=== PATIENT | female | born 2000 | race Caucasian/White ===

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

== ENCOUNTER 2020-05-08 13:28 | Emergency (ER) | payer BC, MEDICAID ==
[2020-05-08 13:37] VITALS: BP 123/64
--- NOTE | 2020-05-08 14:01 | ER Document Report ---
ED Medical Screen (RME) - General Chief Complaint: Back Pain Stated Complaint: BACK, NECK,SHOULDER PAIN Time Seen by Provider: 05/08/20 13:53 Mode of Arrival: Ambulatory Information source: Patient Notes: 19-year-old female presented to ED for right arm feels very heavy with sharp pain to the lower arm and scapula. She states she has had this on and off for about a year but the last couple days it has been much worse. She states that her lower back always has cellulitis but that is also much more painful than normal. She states she has a Dr. Persaud for her primary doctor but she is 29 weeks so I cannot give her x-rays or ibuprofen or steroids at this time. I will get blood work and urine and have her seen by another provider. I have greeted and performed a rapid initial assessment of this patient. A comprehensive ED assessment and evaluation of the patient, analysis of test results and completion of medical decision making process will be conducted by an additional ED providers. TRAVEL OUTSIDE OF THE [place] IN LAST 30 DAYS: No - Related Data Allergies/Adverse Reactions: No Known Allergies Allergy (Verified 08/04/17 18:43) Physical Exam - Vital signs Vitals: Temp Pulse Resp BP Pulse Ox 99.1 F 114 H 20 123/64 100 05/08/20 13:36 05/08/20 13:36 05/08/20 13:36 05/08/20 13:36 05/08/20 13:36 Course - Vital Signs Vital signs: Temp Pulse Resp BP Pulse Ox 99.1 F 114 H 20 123/64 100 05/08/20 13:36 05/08/20 13:36 05/08/20 13:36 05/08/20 13:36 05/08/20 13:36
[2020-05-08 14:22] LABS: ABSOLUTE BASOPHILS # (AUTO) 0.1 10^3/uL (0.0-0.2); ABSOLUTE EOSINOPHILS # (AUTO) 0.1 10^3/uL (0.0-0.6); ABSOLUTE LYMPHOCYTES (AUTO) 3.6 10^3/uL (0.5-4.7); ABSOLUTE MONOCYTES (AUTO) 1.7 10^3/uL (0.1-1.4); ABSOLUTE NEUT (AUTO) 13.9 10^3/uL (1.7-8.2); BASOPHILS % (AUTO) 0.5 % (0-2); EOSINOPHILS % (AUTO) 0.7 % (0-6); HEMATOCRIT 34.1 % (36.0-47.0); HEMOGLOBIN 11.7 g/dL (12.0-15.5); LYMPHOCYTES % (AUTO) 18.4 % (13-45); MEAN CORPUSCULAR HEMOGLOBIN 29.4 pg (27.0-33.4); MEAN CORPUSCULAR HGB CONC 34.3 g/dL (32.0-36.0); MEAN CORPUSCULAR VOLUME 86 fl (80-97); MONOCYTES % (AUTO) 8.6 % (3-13); PLATELET COUNT 340 10^3/uL (150-450); RED BLOOD COUNT 3.99 10^6/uL (3.72-5.28); RED CELL DISTRIBUTION WIDTH 14.8 % (11.5-14.0); SEGMENTED NEUTROPHILS % (AUTO) 71.8 % (42-78); TOTAL CELLS COUNTED % (AUTO) 100 %; WHITE BLOOD COUNT 19.4 10^3/uL (4.0-10.5)
[2020-05-08 14:32] LABS: APPEARANCE,URINE CLOUDY; BILIRUBIN,URINE NEGATIVE (NEGATIVE); COLOR,URINE YELLOW; GLUCOSE, URINE NEGATIVE (NEGATIVE); KETONES,URINE NEGATIVE (NEGATIVE); LEUKOCYTE ESTERASE,URINE TRACE (NEGATIVE); NITRITE,URINE NEGATIVE (NEGATIVE); PROTEIN,URINE 30 mg/dL (NEGATIVE); URINE SPECIFIC GRAVITY 1.014
[2020-05-08 14:38] LABS: ALBUMIN 3.5 g/dL (3.5-5.0); ALKALINE PHOSPHATASE 153 U/L (38-126); ANION GAP 6 (5-19); ASPARTATE AMINO TRANSFERASE 18 U/L (14-36); BILIRUBIN,TOTAL 0.3 mg/dL (0.2-1.3); BLOOD UREA NITROGEN 6 mg/dL (7-20); CALCIUM 9.4 mg/dL (8.4-10.2); CARBON DIOXIDE 20 mmol/L (22-30); CHLORIDE 109 mmol/L (98-107); GLUCOSE 92 mg/dL (75-110); POTASSIUM 4.3 mmol/L (3.6-5.0); TOTAL PROTEIN 6.7 g/dL (6.3-8.2)
== END 2020-05-09 06:35 | disposition left against medical advice (07) ==
LOC: ER 13:28
DX: Z53.20 Procedure and treatment not carried out because of patient's decision for unspecified reasons (principal); M54.9 Dorsalgia, unspecified; M54.2 Cervicalgia; M79.601 Pain in right arm; M25.511 Pain in right shoulder; M54.5 Low back pain; Z3A.29 29 weeks gestation of pregnancy
CPT/HCPCS: 36415; 80053; 81001; 83690; 85025; 99281

== ENCOUNTER 2020-05-18 16:51 | Emergency (ER) | payer MEDICAID ==
[2020-05-18 16:57] VITALS: BP 128/65
--- NOTE | 2020-05-18 17:06 | ER Document Report ---
ED Medical Screen (RME) - General Chief Complaint: Fall Injury Stated Complaint: FALL/BACK PAIN Time Seen by Provider: 05/18/20 16:55 Mode of Arrival: Ambulatory Information source: Patient Notes: 19-year-old female presented to ED for complaint of back and coccyx area pain after she fell yesterday. She states yesterday the pain was not bad but today is much worse. She denies abdominal pain. She is 31 weeks . She states she smokes 1/2 pack a day does not drink or do any drugs. She lives with her significant other and child. She states she took Tylenol about 1 PM. States she can feel her child moved. I have ordered urine and a heart and she will be evaluated by another provider. I have greeted and performed a rapid initial assessment of this patient. A comprehensive ED assessment and evaluation of the patient, analysis of test results and completion of medical decision making process will be conducted by an additional ED providers. TRAVEL OUTSIDE OF THE [place] IN LAST 30 DAYS: No - Related Data Allergies/Adverse Reactions: No Known Allergies Allergy (Verified 05/18/20 16:56) Home Medications: PNV Past Medical History - Social History Chew tobacco use (# tins/day): No Frequency of alcohol use: None Drug Abuse: None Psychiatric Medical History: Reports: Hx Bipolar Disorder, Hx Depression Past Surgical History: Reports: Hx Oral Surgery Physical Exam - Vital signs Vitals: Pulse Resp BP Pulse Ox 114 H 18 128/65 H 100 05/18/20 16:55 05/18/20 16:55 05/18/20 16:55 05/18/20 16:55 Course - Vital Signs Vital signs: Temp Pulse Resp BP Pulse Ox 114 H 18 128/65 H 100 05/18/20 16:55 05/18/20 16:55 05/18/20 16:55 05/18/20 16:55
[2020-05-18 17:31] LABS: APPEARANCE,URINE SLIGHTLY-CLOUDY; BILIRUBIN,URINE NEGATIVE (NEGATIVE); COLOR,URINE YELLOW; GLUCOSE, URINE NEGATIVE (NEGATIVE); KETONES,URINE NEGATIVE (NEGATIVE); LEUKOCYTE ESTERASE,URINE NEGATIVE (NEGATIVE); NITRITE,URINE NEGATIVE (NEGATIVE); PROTEIN,URINE NEGATIVE (NEGATIVE); URINE SPECIFIC GRAVITY 1.023
--- NOTE | 2020-05-18 18:05 | ER Document Report ---
Entered by ITZEL ESCOBAR SCRIBE 05/18/20 1744 Acting as scribe for:MATEO VASQUEZ MD ED General - General Chief Complaint: Fall Injury Stated Complaint: FALL/BACK PAIN Time Seen by Provider: 05/18/20 16:55 Information source: Patient Notes: This 19 year old female patient that is 31 weeks presents to the emergency department today with complaints of lower back pain associated with a fall yesterday. Patient states that she was walking on a splash pad with her child and she didn't realize her shoes were smooth on the bottom. Patient slipped and landed on her buttocks. TRAVEL OUTSIDE OF THE [place] IN LAST 30 DAYS: No - Related Data Allergies/Adverse Reactions: No Known Allergies Allergy (Verified 05/18/20 16:56) Home Medications: PNV Past Medical History - General Information source: Patient - Social History Smoking Status: Current Every Day Smoker Cigarette use (# per day): No Chew tobacco use (# tins/day): No Frequency of alcohol use: None Drug Abuse: None Lives with: Family Family History: Reviewed & Not Pertinent Patient has homicidal ideation: No Psychiatric Medical History: Reports: Hx Bipolar Disorder, Hx Depression Past Surgical History: Reports: Hx Oral Surgery Review of Systems - Review of Systems Constitutional: No symptoms reported EENT: No symptoms reported Cardiovascular: No symptoms reported Respiratory: No symptoms reported Gastrointestinal: No symptoms reported Genitourinary: No symptoms reported Female Genitourinary: See HPI, Musculoskeletal: See HPI, Back pain Skin: No symptoms reported Hematologic/Lymphatic: No symptoms reported Neurological/Psychological: No symptoms reported -: Yes All other systems reviewed and negative Physical Exam - Vital signs Vitals: Pulse Resp BP Pulse Ox 114 H 18 128/65 H 100 05/18/20 16:55 05/18/20 16:55 05/18/20 16:55 05/18/20 16:55 - Notes Notes: Physical Exam: General: Alert, appears well. HEENT: Normocephalic. Atraumatic. PERRL. Extraocular movements intact. Oropharynx clear. Neck: Supple. Non-tender. Respiratory: No respiratory distress. Clear and equal breath sounds bilaterally. Cardiovascular: Regular rate and rhythm. Abdominal: Gravid female. Non-tender. No distension. Normal Bowel Sounds. Back: Tenderness with palpation over the ischial tuberosity. No gross abnorm alities. Extremities: Moves all four extremities. Upper extremities: Normal inspection. Normal ROM. Lower extremities: Normal inspection. No edema. Normal ROM. Neurological: Normal cognition. AAOx4. Normal speech. Psychological: Normal affect. Normal Mood. Skin: Warm. Dry. Normal color. Course - Re-evaluation Re-evalutation: 05/18/20 18:05 Urinalysis shows urine is little concentrated suggesting the patient needs to drink more water. heart tones 150. - Vital Signs Vital signs: Temp Pulse Resp BP Pulse Ox 114 H 18 128/65 H 100 05/18/20 16:55 05/18/20 16:55 05/18/20 16:55 05/18/20 16:55 - Laboratory Laboratory results interpreted by me: 05/18/20 17:07 Urine Urobilinogen 2.0 H Discharge - Discharge Clinical Impression: with 31 completed weeks gestation Contusion of buttock Qualifiers: Encounter type: initial encounter Qualified Code(s): S30.0XXA - Contusion of lower back and pelvis, initial encounter Condition: Stable Disposition: HOME, SELF-CARE Additional Instructions: Contusion Your injury has resulted in a contusion -- a crushing of the deep tissues. No injury to important structures was detected during the physician's exam. Contusions vary in the amount of pain they cause, and in the length of time required for healing. Typically, the area will become bruised, and will remain painful to touch for two or three weeks. However, most patients are back to working and playing within a few days. After the initial period of rest and cold-packs, your symptoms (together with the doctor's recommendations) will determine how rapidly you can get back to full activity. Usually this means "do what feels okay, but don't do things that hurt." If re-examination was recommended, it's important to follow up as instructed. Call the doctor or return any time if pain increases, if swelling becomes severe, if you develop numbness or weakness in an injured extremity, or if any other alarming symptoms occur. When you fell you landed on the bony projection of your pelvis called the ischial tuberosity. This would cause the crush or contusion type injury to the soft tissues between the bony area and the skin. You will notice discomfort in that area when you walk because your nubia and relaxing muscles and stretching soft tissues in that area. You should limit activities that make it hurt worse for the next few days. Use ice packs on the area for 1 to 2 days. Take Tylenol for pain as needed. You should also drink a lot more fluids than you have been based on your urine concentration today. Follow-up with your [employer] doctors if you do not improve. RETURN TO THE EMERGENCY ROOM IF ANY NEW OR WORSENING SYMPTOMS. Referrals: [facility] [Provider Group] - Follow up as needed I personally performed the services described in the documentation, reviewed and edited the documentation which was dictated to the scribe in my presence, and it accurately records my words and actions.
== END 2020-05-18 18:41 | disposition home or self-care (01) ==
LOC: ER 16:51
DX: O9A.213 Injury, poisoning and certain other consequences of external causes complicating pregnancy, third trimester (principal); S30.0XXA Contusion of lower back and pelvis, initial encounter; W01.0XXA Fall on same level from slipping, tripping and stumbling without subsequent striking against object, initial encounter; Y93.89 Activity, other specified; O99.333 Smoking (tobacco) complicating pregnancy, third trimester; F17.200 Nicotine dependence, unspecified, uncomplicated; Z79.899 Other long term (current) drug therapy; Z3A.31 31 weeks gestation of pregnancy
CPT/HCPCS: 81001; 99283

== ENCOUNTER → 2020-05-28 | Outpatient (CLI) | payer MEDICAID ==
--- NOTE | 2020-05-28 15:30 | RADIOLOGY REPORT (SQ) ---
EXAM DESCRIPTION: U/S ABDOMEN LIMITED W/O DOP IMAGES COMPLETED DATE/TIME: 05/28/2020 2:56 pm REASON FOR STUDY: R10.13 EPIGASTRIC PAIN R10.13 EPIGASTRIC PAIN COMPARISON: None. TECHNIQUE: Dynamic and static grayscale images acquired of the abdomen and recorded on PACS. Additio nal selected color Doppler and spectral images recorded. LIMITATIONS: None. FINDINGS: PANCREAS: Obscured by overlying bowel gas. LIVER: No masses. Echotexture normal. LIVER VASCULATURE: Normal directional flow of the main portal vein and hepatic veins. GALLBLADDER: Gallbladder is contracted. No stones are identified. ULTRASOUND-DETECTED WHITFIELD'S SIGN: Negative. INTRAHEPATIC DUCTS AND COMMON DUCT: CBD and intrahepatic ducts normal caliber. No filling defects. AORTA: No aneurysm. RIGHT KIDNEY: Normal size. Normal echogenicity. No solid or suspicious masses. No hydronephrosis. No calcifications. PERITONEAL AND RIGHT PLEURAL SPACE: No ascites or effusions. OTHER: No other significant findings. IMPRESSION: NORMAL RIGHT UPPER QUADRANT ULTRASOUND. TECHNICAL DOCUMENTATION: JOB ID: [id number] 2010 [employer]- All Rights Reserved Reading location - IP/workstation name: [email or web address]
== END ==
LOC: RAD 14:07
PROVIDERS: ATTEND Advanced Practice Midwife
DX: R10.13 Epigastric pain (principal)
CPT/HCPCS: 76705

== ENCOUNTER 2020-06-24 07:31 | Outpatient (CLI) | payer MEDICAID ==
--- NOTE | 2020-06-24 08:53 | Non Stress Test Report ---
Non Stress Test Datetime Report Generated by CPN: 06/24/2020 08:53 DEMOGRAPHIC Test Number: 2 EGA NST: 36.4 INDICATION Indication for Study (NST) Other: LC- ctxs MONITORING Monitor Explained: Monitor Explained; Test Explained; Patient Verbalized Understanding Time on Monitor: 06/24/2020 07:54 Time off Monitor: 06/24/2020 08:49 NST Duration: 55 NST INTERVENTIONS NST Interventions: PO Hydration Physician Notified NST: Dr Thomas BABY A: [id number] BABY A Movement : Present Contraction Frequency : irregular FHR Baseline : 135 Accelerations : 15X15 Decelerations : None Variability : Moderate 6-25bpm NST Review: Meets Criteria for Reactive NST NST Review and Verified By : TMartin,RN NST Results: Reactive NST COMMENTS NST Comments: MD on unit reviewing FHT strip NST REPORT Report Trigger: Send Report
[2020-06-24 08:56] LABS: APPEARANCE,URINE CLOUDY; BILIRUBIN,URINE NEGATIVE (NEGATIVE); COLOR,URINE AMBER; GLUCOSE, URINE NEGATIVE (NEGATIVE); KETONES,URINE NEGATIVE (NEGATIVE); LEUKOCYTE ESTERASE,URINE TRACE (NEGATIVE); NITRITE,URINE NEGATIVE (NEGATIVE); PROTEIN,URINE 100 mg/dL (NEGATIVE); URINE SPECIFIC GRAVITY 1.029
[2020-06-24 09:19] LABS: URINE BENZODIAZEPINES SCREEN NEGATIVE; URINE COCAINE SCREEN NEGATIVE; URINE MARIJUANA (THC) SCREEN NEGATIVE; URINE METHADONE SCREEN NEGATIVE; URINE PHENCYCLIDINE SCREEN NEGATIVE
[2020-06-24 09:23] LABS: URINE AMPHETAMINES SCREEN UNCONFIRMED POSITIVE; URINE BARBITURATES SCREEN UNCONFIRMED POSITIVE
== END 2020-06-24 09:09 | disposition home or self-care (01) ==
LOC: LC 07:31
PROVIDERS: ATTEND Obstetrics & Gynecology
DX: O23.43 Unspecified infection of urinary tract in pregnancy, third trimester (principal); O47.03 False labor before 37 completed weeks of gestation, third trimester; Z3A.36 36 weeks gestation of pregnancy
CPT/HCPCS: 59025; 80307; 81001; 87086

== ENCOUNTER 2020-07-04 19:30 | Inpatient (IN) | payer MEDICAID ==
[2020-07-04 21:20] LABS: APPEARANCE,URINE SLIGHTLY-CLOUDY; BILIRUBIN,URINE NEGATIVE (NEGATIVE); COLOR,URINE YELLOW; GLUCOSE, URINE NEGATIVE (NEGATIVE); KETONES,URINE NEGATIVE (NEGATIVE); LEUKOCYTE ESTERASE,URINE NEGATIVE (NEGATIVE); NITRITE,URINE NEGATIVE (NEGATIVE); PROTEIN,URINE 30 mg/dL (NEGATIVE); URINE SPECIFIC GRAVITY 1.025; UROBILINOGEN,URINE NEGATIVE mg/dL (<2.0)
[2020-07-04 21:36] LABS: URINE AMPHETAMINES SCREEN NEGATIVE; URINE BENZODIAZEPINES SCREEN NEGATIVE; URINE COCAINE SCREEN NEGATIVE; URINE MARIJUANA (THC) SCREEN NEGATIVE; URINE METHADONE SCREEN NEGATIVE; URINE PHENCYCLIDINE SCREEN NEGATIVE
[2020-07-04 21:37] LABS: URINE BARBITURATES SCREEN UNCONFIRMED POSITIVE
[2020-07-04] MEDS ORDERED: RINGERS SOLUTION,LACTATED 1,000 ML IV PRN (22:04)
[2020-07-04] MEDS ORDERED: OXYTOCIN/0.9 % SODIUM CHLORIDE 30 UNIT/500 ML RTUINJ IV PRN (22:07)
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
[2020-07-04] MEDS ORDERED: RINGERS SOLUTION,LACTATED 1,000 ML IV ONE (22:30)
[2020-07-04] MEDS ORDERED: AMPICILLIN SODIUM 2 GM in NORMAL SALINE 100 ML IV ONE (22:30)
[2020-07-04 22:34] LABS: ABSOLUTE BASOPHILS # (AUTO) 0.1 10^3/uL (0.0-0.2); ABSOLUTE EOSINOPHILS # (AUTO) 0.1 10^3/uL (0.0-0.6); ABSOLUTE LYMPHOCYTES (AUTO) 3.7 10^3/uL (0.5-4.7); ABSOLUTE MONOCYTES (AUTO) 1.5 10^3/uL (0.1-1.4); ABSOLUTE NEUT (AUTO) 10.3 10^3/uL (1.7-8.2); BASOPHILS % (AUTO) 0.5 % (0-2); EOSINOPHILS % (AUTO) 0.9 % (0-6); HEMATOCRIT 32.5 % (36.0-47.0); HEMOGLOBIN 10.5 g/dL (12.0-15.5); LYMPHOCYTES % (AUTO) 23.4 % (13-45); MEAN CORPUSCULAR HEMOGLOBIN 25.1 pg (27.0-33.4); MEAN CORPUSCULAR HGB CONC 32.4 g/dL (32.0-36.0); MEAN CORPUSCULAR VOLUME 78 fl (80-97); MONOCYTES % (AUTO) 9.8 % (3-13); PLATELET COUNT 294 10^3/uL (150-450); RED CELL DISTRIBUTION WIDTH 18.3 % (11.5-14.0); SEGMENTED NEUTROPHILS % (AUTO) 65.4 % (42-78); TOTAL CELLS COUNTED % (AUTO) 100 %; WHITE BLOOD COUNT 15.7 10^3/uL (4.0-10.5)
[2020-07-04] MEDS ORDERED: OXYTOCIN/0.9 % SODIUM CHLORIDE 30 UNIT/500 ML RTUINJ ONE (23:29)
[2020-07-04] MEDS ORDERED: OXYTOCIN 10 UNIT/ML VIAL ONE (23:29)
[2020-07-04] MEDS ORDERED: MISOPROSTOL 0.2 MG TABLET ONE (23:29)
[2020-07-04] MEDS ORDERED: LIDOCAINE 1% INJ-PF (10 MG/ML) 30 ML SDV ONE (23:29)
[2020-07-04] MEDS ORDERED: EPHEDRINE SULFATE INJ 50 MG/1 ML AMPULE ONE (23:58)
[2020-07-04] MEDS ORDERED: FENTANYL/BUPIVACAINE/NS/PF 300 MCG/150 ML RTUINJ EPI ONE (23:59)
[2020-07-04] MEDS ORDERED: ROPIVACAINE HCL 0.2% INJ/PF (2 MG/ML) 20 ML SDV ONE (23:59)
[2020-07-05] MEDS ORDERED: AMPICILLIN SOD INJ 2 GM VIAL ONE (00:29)
[2020-07-05] MEDS ORDERED: LIDOCAINE 1% INJ-PF (10 MG/ML) 30 ML SDV ONE (00:53)
[2020-07-05] MEDS ORDERED: AMPICILLIN SODIUM 1 GM in NORMAL SALINE 50 ML IV SCH (02:00)
[2020-07-05] MEDS ORDERED: PROMETHAZINE HCL INJ 25 MG/1 ML VIAL ONE (04:11)
[2020-07-05] MEDS ORDERED: NALBUPHINE HCL INJ 10 MG/1 ML AMPULE ONE (04:12)
[2020-07-05] MEDS ORDERED: AMPICILLIN SOD INJ 1 GM VIAL ONE (04:30)
[2020-07-05 04:34] LABS: CHLAM PCR NOT DETECTED (NOT DETECT)
[2020-07-05] MEDS ORDERED: PROMETHAZINE HCL INJ 25 MG/1 ML VIAL IV ONE (05:30)
[2020-07-05] MEDS ORDERED: NALBUPHINE HCL INJ 10 MG/1 ML AMPULE INJ ONE (05:30)
[2020-07-05] MEDS ORDERED: ACETAMINOPHEN WITH CODEINE #3 TABLET PO PRN (05:54)
[2020-07-05] MEDS ORDERED: PSEUDOEPHEDRINE HCL 30 MG TABLET PO PRN (05:54)
[2020-07-05] MEDS ORDERED: DIBUCAINE 1% OINTMENT 28 GM TP PRN (05:54)
[2020-07-05] MEDS ORDERED: PROMETHAZINE HCL 25 MG SUPP.RECT PR PRN (05:54)
[2020-07-05] MEDS ORDERED: ZOLPIDEM TARTRATE 5 MG TABLET PO PRN (05:54)
[2020-07-05] MEDS ORDERED: BENZOCAINE/MENTHOL AEROSOL SPRAY 56 ML TOP PRN (05:54)
[2020-07-05] MEDS ORDERED: OXYTOCIN/0.9 % SODIUM CHLORIDE 30 UNIT/500 ML RTUINJ IV PRN (05:54)
[2020-07-05] MEDS ORDERED: MAGNESIUM HYDROXIDE SUSP 30 ML UDCUP PO PRN (05:54)
[2020-07-05] MEDS ORDERED: MEASLES,MUMPS&RUBELLA VACC/PF 0.5 ML VIAL SUBCUT PRN ×2 (05:54→15:30)
[2020-07-05] MEDS ORDERED: DIPHENHYDRAMINE HCL 25 MG CAPSULE PO PRN (05:54)
[2020-07-05] MEDS ORDERED: GLYCERIN/WITCH HAZEL LEAF 1 EACH MED..WIPE TP PRN (05:54)
[2020-07-05] MEDS ORDERED: PROMETHAZINE HCL 25 MG TABLET PO PRN (05:54)
[2020-07-05] MEDS ORDERED: ACETAMINOPHEN 650 MG SUPP.RECT PR PRN (05:54)
[2020-07-05] MEDS ORDERED: PROMETHAZINE HCL INJ 25 MG/1 ML VIAL IV PRN ×2 (05:54→15:30)
[2020-07-05] MEDS ORDERED: NA PHOS,M-B/NA PHOS,DI-BA (ADULT) 133 ML ENEMA PR PRN (05:54)
[2020-07-05] MEDS ORDERED: DIPH/PERTUSS(ACELL)/TETANUS VAC/PF 0.5 ML SYR (>=10YO) IM PRN ×2 (05:54→15:30)
[2020-07-05] MEDS ORDERED: IBUPROFEN 800 MG TABLET ONE (05:56)
--- NOTE | 2020-07-05 07:02 | Delivery Summary ---
Del Sum A-C Datetime Report Generated by CPN: 07/05/2020 07:02 DELIVERY PERSONNEL DELIVERY PERSONNEL: [id number] Delivery Doctor:: Cinthia Thomas MD Labor and Delivery Nurse:: Rebekah Rock RN Head Correction Officer/R D ENGINEER: Talaenzo Francis, Head Correction Officer/R D ENGINEER: Iris Dutta, [employer]EL[employer] MATERNAL INFORMATION Delivery Anesthesia: Epidural Medications After Delivery: Pitocin 30 Units in 500ml NS/D5W Estimated Blood Loss (ml): 250 Maternal Complications: None LABOR SUMMARY EDC: 07/18/2020 00:00 No. Babies in Womb: 1 Attempted: No Labor Anesthesia: Epidural LABOR INFORMATION Reason for Induction: Other Reason for Induction- Other: Prolonged Rupture of Membranes Onset of Labor: 07/05/2020 01:30 Complete Dilatation: 07/05/2020 05:21 Oxytocin: Augmentation Group B Beta Strep: unknown Antibiotics # of Doses: 2 Antibiotics Time of Last Dose: 07/05/2020 04:39 Name of Antibiotic Given: ampicillin Steroids Given: None Reason Steroids Not Administered: Not Applicable MEMBRANES Membranes Rupture Method: Artificial Amniotic Fluid Color: Clear Amniotic Fluid Amount: Moderate Amniotic Fluid Odor: Normal STAGES OF LABOR Stage 1 hr: 3 Stage 1 min: 51 Stage 2 hr: 0 Stage 2 min: 15 Stage 3 hr: 0 Stage 3 min: 8 Total Time in Labor hr: 4 Total Time in Labor min: 14 VAGINAL DELIVERY Episiotomy: None Laceration #1: Perineal Laceration Extension #1: Second Degree Laceration #2: None Laceration Extension #2: N/A Laceration #3: None Laceration Extension #3: N/A Laceration Repair: Yes Laceration Repair Note: Perineal laceration repaired with 3-0 chromic in usual fashion with lidocaine used as local to help with pain control. Sponge Count Correct: Vaginal Sweep Performed Sharps Count Correct: Yes CSECTION DELIVERY Primary Indication: N/A Secondary Indication: N/A CSection Incidence: N/A Labor: N/A Elective: N/A BABY A INFORMATION Delivery Date/Time: 07/05/2020 05:36 Method of Delivery: Vaginal Nurse Controlled Delivery: No Born in Route : No : N/A Forceps: N/A Vacuum Extraction: N/A Shoulder Dystocia : No PRESENTATION/POSITION BABY A Presentation: Cephalic Cephalic Presentation: Vertex Vertex Position: Left Occipital Anterior Breech Presentation: N/A PLACENTA INFORMATION BABY A Placenta Delivery Time : 07/05/2020 05:44 Placenta Method of Delivery: Spontaneous Placenta Status: Delivered SCORES BABY A Heart Rate 1 min: >100 bpm Resp Effort 1 min: Good Cry Reflex Irritability 1 min: Cough or Sneeze or Pulls Away Muscle Tone 1 min: Active Motion Color 1 min: Body [place], Extremities Blue Resuscitation Effort 1 min: Tactile Stimulation SCORE 1 MIN: 9 Heart Rate 5 min: >100 bpm Resp Effort 5 min: Good Cry Reflex Irritability 5 min: Cough or Sneeze or Pulls Away Muscle Tone 5 min: Active Motion Color 5 min: Body [place], Extremities Blue Resuscitation Effort 5 min: Tactile Stimulation SCORE 5 MIN: 9 INFANT INFORMATION BABY A Gestational Age at Delivery: 38.1 Gestational Status: Early Term- 37- 38.6 Weeks Infant Outcome : Liveborn Infant Condition : Stable Sex: Female IDENTIFICATION BABY A Infant Verification Date/Time: 07/05/2020 05:54 ID Band Number: [id number] Mother's Name Verified: Yes Infant RN Verifying : E. Hugolek RN/ L. Parlor [employer] DEVELOPER WEIGHT/LENGTH BABY A Birthweight (gm): 3272 Weight (lb): 7 Infant Weight (oz): 3 Length (in): 19.50 Length (cm): 49.53 CORD INFORMATION BABY A No. Cord Vessels: 3 Nuchal Cord : N/A Cord Blood Taken: Yes-For Storage (Mom's Blood type +) Suction: None ASSESSMENT BABY A Complications: None Physical Findings at Delivery: Within Normal Limits Infant Respirations: Appears Normal Skin to Skin: Yes Transferred To: Remains with Mother BABY B INFORMATION : N/A SIGNATURES Signature: with User ID: Mar
--- NOTE | 2020-07-05 07:02 | Birth Certificate Data ---
Cert Data Datetime Report Generated by CPN: 07/05/2020 07:02 CERTIFICATE DATA 47a. Care: No (05/28/2020 18:01:Sally Sin RN) 47b. Date of First Visit: 01/04/2020 00:00 (05/28/2020 18:01:Rebekah Rock RN) 47c. Date of Last Visit: 07/04/2020 00:00 (05/28/2020 18:01:Rebekah Rock RN) 47d. Number of Visits: 12 (05/28/2020 18:01:Rebekah Rock RN) 48b. Now Livin (05/28/2020 18:01:Radha He RN) 48e. Losses: 0 (05/28/2020 18:01:Radha He RN) RISK FACTORS IN THIS 49a. Diabetes: No (05/28/2020 18:01:Sally Sin RN) 49b. Hypertension: No (05/28/2020 18:01:Sally Sin RN) 49c. Previous Births: 0 (05/28/2020 18:01:Radha He RN) 49d. Stillborns: No (05/28/2020 18:01:Sally Sin RN) 49d. IUGR: No (05/28/2020 18:01:Sally Sin RN) 49e. Infertility Treatment: No (05/28/2020 18:01:Sally Sin RN) 49f. Previous Cesareans: 0 (05/28/2020 18:01:Radha He RN) Mother's Height 50b. Height Inches: 61 (07/04/2020 20:08:QS system process) Mother's Weight 51b. Weight at Delivery (lbs): 216 (07/04/2020 20:08:QS system process) Infections Present/Treated 53a. Gonorrhea: No (05/28/2020 18:01:Rebekah Rock RN) 53b. Syphilis: No (05/28/2020 18:01:Rebekah Rock RN) 53c. Chlamydia: No (05/28/2020 18:01:Rebekah Rock RN) Results this Hospital Visit: Negative (05/28/2020 18:01:Sally Sin RN) 53e. Hepatitis C: Negative (05/28/2020 18:01:Sally Sin RN) 53h. Mother Tested for HBsAG: Yes (05/28/2020 18:01:Sally Sin RN) 53i. Date Tested: 01/18/2020 00:00 (05/28/2020 18:01:Sally Sin RN) 53j. Test Result: Negative (05/28/2020 18:01:Sally Sin RN) Obstetric Procedures 54a, b, c. Obstetric Procedures: Ultrasound (05/28/2020 18:01:Sally Sin RN) Cigarette Smoking 55a. 3 Months Before Preg - Ci (05/28/2020 18:01:Rebekah Rock RN) 55b. 1st Trimester of Preg- Ci (05/28/2020 18:01:Rebekah Rock RN) 55c. 2nd Trimester of Preg- Ci (05/28/2020 18:01:Rebekah Rock RN) 55d. 3rd Trimester of Preg- Ci (05/28/2020 18:01:Rebekah Rock RN) Onset of Labor 56b. Precipitous Labor <3 Hrs: 4 (05/28/2020 18:01:QS system process) 56c. Prolonged Labor > 20 Hrs: 4 (05/28/2020 18:01:QS system process) 57a. Induction of Labor: Augmentation (05/28/2020 18:01:Rebekah Rock RN) 57c. Non-Vertex Presentation A: Vertex (05/28/2020 18:01:Cinthia Thomas MD ([facility])) 57d. Steroids - Lung Mat: None (05/28/2020 18:01:[facility] 57d. Steroids - Lung Mat: Not Applicable (05/28/2020 18:01:Cinthia Thomas MD ([facility])) 57e. Antibiotics During Labor: 07/05/2020 04:39 (05/28/2020 18:01:Rebekah Rock RN) 57g. Moderate/Heavy Meconium: Clear (07/05/2020 05:22:Rebekah Rock RN) 57h. Intolerance of Labor: N/A (05/28/2020 18:01:Rebekah Rock RN) : N/A (05/28/2020 18:01:Rebekah Rock RN) 57i. Epidural/Spinal Anesthesia: Epidural (05/28/2020 18:01:Cinthia Thomas MD ([facility])) Method of Delivery 58a. Forceps - Unsuccessful A: N/A (05/28/2020 18:01:Rebekah Rock RN) 58b. Vacuum - Unsuccessful A: N/A (05/28/2020 18:01:Rebekah Rock RN) 58c. Presentation at 58c. Presentation at - A : Vertex (05/28/2020 18:01:[facility] Thomas MD ([facility])) 58c. Presentation at - A : N/A (05/28/2020 18:01:[facility]inthia Thomas MD ([facility])) 58c. Presentation at - A : Cephalic (05/28/2020 18:01:Cinthia Thomas MD ([facility])) Final Route and Method of Del 58d. Baby A Route/Delivery: Vaginal (05/28/2020 18::Cinthia Thomas MD ([facility])) 58e. Trial of Labor Attempted: No (05/28/2020 18::Rebekah Rock RN) 58e. Trial of Labor Attempted A: N/A (05/28/2020 18:01:Rebekah Rock RN) 58e. Trial of Labor Attempted B: N/A (05/28/2020 18:01:Rebekah Rock RN) Maternal Morbidity 59b. 3rd or 4th Degree Lacs: Perineal (05/28/2020 18:01:Cinthia Thomas MD ([facility])) Birthweight Baby A: 3272 (05/28/2020 18:01:Rebekah Rock RN) 60a. Pounds : 7 (05/28/2020 18:01:QS system process) 60b. Ounces: 3 (05/28/2020 18:01:QS system process) 61. GA at Delivery Baby A: 38.1 (05/28/2020 18:01:Rebekah Rock RN) : Early Term- 37- 38.6 Weeks (05/28/2020 18:01:QS system process) 62a. 5 Minute Baby A: 9 (05/28/2020 18:01:QS system process)
[2020-07-05] MEDS: IBUPROFEN 800 MG TABLET PO SCH ×3 (08:41→22:31)
[2020-07-05] MEDS: DOCUSATE SODIUM 100 MG CAPSULE PO SCH ×2 (09:21→18:02)
[2020-07-05] MEDS: FERROUS SULFATE 325 MG TABLET PO SCH ×2 (09:21→18:02)
[2020-07-05] MEDS: SENNOSIDES/DOCUSATE 8.6-50 MG 1 EACH TABLET PO SCH (09:21)
[2020-07-05] MEDS: FAMOTIDINE 20 MG TABLET PO SCH ×2 (09:21→22:31)
[2020-07-05] MEDS: ACETAMINOPHEN WITH CODEINE #3 TABLET PO PRN ×3 (09:21→19:51)
[2020-07-05] MEDS: PRENATAL VITAMIN W DHA CAPSULE PO SCH (09:21)
[2020-07-06] MEDS: IBUPROFEN 800 MG TABLET PO SCH ×3 (05:21→21:13)
[2020-07-06] MEDS: ACETAMINOPHEN WITH CODEINE #3 TABLET PO PRN ×2 (05:25→16:38)
[2020-07-06 07:19] LABS: HEMATOCRIT 30.3 % (36.0-47.0); HEMOGLOBIN 9.8 g/dL (12.0-15.5); MEAN CORPUSCULAR HEMOGLOBIN 25.1 pg (27.0-33.4); MEAN CORPUSCULAR HGB CONC 32.3 g/dL (32.0-36.0); MEAN CORPUSCULAR VOLUME 78 fl (80-97); PLATELET COUNT 267 10^3/uL (150-450); RED BLOOD COUNT 3.89 10^6/uL (3.72-5.28); RED CELL DISTRIBUTION WIDTH 18.7 % (11.5-14.0); WHITE BLOOD COUNT 12.9 10^3/uL (4.0-10.5)
[2020-07-06] MEDS: FAMOTIDINE 20 MG TABLET PO SCH ×2 (09:27→21:13)
[2020-07-06] MEDS: SENNOSIDES/DOCUSATE 8.6-50 MG 1 EACH TABLET PO SCH (09:27)
[2020-07-06] MEDS: FERROUS SULFATE 325 MG TABLET PO SCH ×2 (09:27→17:42)
[2020-07-06] MEDS: DOCUSATE SODIUM 100 MG CAPSULE PO SCH ×2 (09:27→17:43)
[2020-07-06] MEDS: PRENATAL VITAMIN W DHA CAPSULE PO SCH (09:27)
--- NOTE | 2020-07-06 12:34 | PDOC PROGRESS REPORT ---
Subjective-OB Progress Note for:: 07/06/20 Subjective: Pt doing well, no concerns. She reports light bleeding reg diet and voiding w/o difficulty. Physical Exam (OB) Vital Signs: Temp Pulse Resp BP Pulse Ox 97.5 F 70 16 136/76 H 100 07/06/20 10:00 07/06/20 07:09 07/06/20 07:09 07/06/20 07:09 07/06/20 07:09 Intake & Output 07/05/20 07/06/20 07/07/20 06:59 06:59 06:59 Intake Total 940 240 Balance 940 240 Weight 97.7 kg - Maternal Morbidity 59. Maternal Morbidity (serious complications experinced by the mother associated with labor and delivery: None of the above - Lochia Lochia Amount: Small 10-25 ml Lochia Color: Rubra/Red - Abdomen Description: Firm Hernia Present: No Fundal Description: Firm Fundal Height: u/u - u/2 Objective-Diagnostic Laboratory: 07/06/20 06:32 07/06/20 06:32 WBC 12.9 H RBC 3.89 Hgb 9.8 L Hct 30.3 L MCV 78 L MCH 25.1 L MCHC 32.3 RDW 18.7 H Plt Count 267 Assessment and Plan(PN) - Assessment and Plan (1) Obstetrical laceration, second degree Is this a current diagnosis for this admission?: Yes (2) Prolonged rupture of membranes, delivered Is this a current diagnosis for this admission?: Yes (3) Vaginal delivery Is this a current diagnosis for this admission?: Yes - Time Spent with Patient Time with patient: Less than 15 minutes Medications reviewed and adjusted accordingly: Yes - Disposition Anticipated Discharge Disposition: Home, Self Care Anticipated Discharge Timeframe: within 24 hours
[2020-07-07] MEDS: IBUPROFEN 800 MG TABLET PO SCH (05:13)
[2020-07-07 08:08] VITALS: BP 138/78
--- NOTE | 2020-07-07 08:47 | PDOC DISCHARGE SUMMARY ---
Impression - Admit/DC Date/PCP Admission Date/Primary Care Provider: 07/04/20 21:32 LEIGH ANN MADERA MD Discharge Date: 07/07/20 - Discharge Diagnosis (1) Obstetrical laceration, second degree Is this a current diagnosis for this admission?: Yes (2) Prolonged rupture of membranes, delivered Is this a current diagnosis for this admission?: Yes (3) Vaginal delivery Is this a current diagnosis for this admission?: Yes - Additional Information Resuscitation Status: Full Code Discharge Diet: Regular Discharge Activity: Balance Activity w/Rest, Pelvic Rest Referrals: LEIGH ANN MADERA MD [Primary Care Provider] - Home Medications: Butalb/Acetaminophen/Caffeine [Fioricet 50-300-40 mg Capsule] 1 cap PO Q4 PRN 05/28/20 Vits96/Iron Fum/Folic [ Tablet] 1 each PO DAILY 05/28/20 HPI Gestational Age: 38.0 Reason(s) for Admission: PROM Procedures: NST Intrapartum Procedure(s): Spontaneous Vaginal Delivery Complication(s): Laceration-Perineal Laceration-Degree: 2nd Hospital Course 59. Maternal Morbidity (serious complications experinced by the mother associated with labor and delivery: None of the above Results Laboratory Results: WBC 12.9 10^3/uL (4.0-10.5) H 07/06/20 06:32 RBC 3.89 10^6/uL (3.72-5.28) 07/06/20 06:32 Hgb 9.8 g/dL (12.0-15.5) L 07/06/20 06:32 Hct 30.3 % (36.0-47.0) L 07/06/20 06:32 MCV 78 fl (80-97) L 07/06/20 06:32 MCH 25.1 pg (27.0-33.4) L 07/06/20 06:32 MCHC 32.3 g/dL (32.0-36.0) 07/06/20 06:32 RDW 18.7 % (11.5-14.0) H 07/06/20 06:32 Plt Count 267 10^3/uL (150-450) 07/06/20 06:32 Lymph % (Auto) 23.4 % (13-45) 07/04/20 22:11 [place] % (Auto) 9.8 % (3-13) 07/04/20 22:11 Eos % (Auto) 0.9 % (0-6) 07/04/20 22:11 Baso % (Auto) 0.5 % (0-2) 07/04/20 22:11 Absolute Neuts (auto) 10.3 10^3/uL (1.7-8.2) H 07/04/20 22:11 Absolute Lymphs (auto) 3.7 10^3/uL (0.5-4.7) 07/04/20 22:11 Absolute Monos (auto) 1.5 10^3/uL (0.1-1.4) H 07/04/20 22:11 Absolute Eos (auto) 0.1 10^3/uL (0.0-0.6) 07/04/20 22:11 Absolute Basos (auto) 0.1 10^3/uL (0.0-0.2) 07/04/20 22:11 Seg Neutrophils % 65.4 % (42-78) 07/04/20 22:11 Urine Color YELLOW 07/04/20 19:38 Urine Appearance SLIGHTLY-CLOUDY 07/04/20 19:38 Urine pH 6.0 (5.0-9.0) 07/04/20 19:38 Ur Specific [place] 1.025 07/04/20 19:38 Urine Protein 30 mg/dL (NEGATIVE) H 07/04/20 19:38 Urine Glucose (UA) NEGATIVE mg/dL (NEGATIVE) 07/04/20 19:38 Urine Ketones NEGATIVE mg/dL (NEGATIVE) 07/04/20 19:38 Urine Blood SMALL (NEGATIVE) H 07/04/20 19:38 Urine Nitrite NEGATIVE (NEGATIVE) 07/04/20 19:38 Urine Bilirubin NEGATIVE (NEGATIVE) 07/04/20 19:38 Urine Urobilinogen NEGATIVE mg/dL (<2.0) 07/04/20 19:38 Ur Leukocyte Esterase NEGATIVE (NEGATIVE) 07/04/20 19:38 Urine Ascorbic Acid NEGATIVE (NEGATIVE) 07/04/20 19:38 Membranes Rupture POSITIVE (NEGATIVE) H 07/04/20 20:15 Urine Opiates Screen NEGATIVE 07/04/20 19:38 Urine Methadone Screen NEGATIVE 07/04/20 19:38 Ur Barbiturates Screen UNCONFIRMED POSITIVE 07/04/20 19:38 Ur Phencyclidine Scrn NEGATIVE 07/04/20 19:38 Ur Amphetamines Screen NEGATIVE 07/04/20 19:38 U Benzodiazepines Scrn NEGATIVE 07/04/20 19:38 Urine Cocaine Screen NEGATIVE 07/04/20 19:38 U Marijuana (THC) Screen NEGATIVE 07/04/20 19:38 RPR NONREACTIVE (NONREACTIVE) 07/04/20 22:11 Chlamydia DNA (PCR) NOT DETECTED (NOT DETECT) 07/05/20 02:15 N.gonorrhoeae DNA (PCR) NOT DETECTED (NOT DETECT) 07/05/20 02:15 Blood Type A POSITIVE 07/04/20 22:11 Antibody Screen NEGATIVE 07/04/20 22:11 Plan Plan of Treatment: f/u at [facility] 4 wks Time Spent: Less than 30 Minutes
[2020-07-07] MEDS: ACETAMINOPHEN WITH CODEINE #3 TABLET PO PRN (10:15)
[2020-07-07] MEDS: FERROUS SULFATE 325 MG TABLET PO SCH (10:19)
[2020-07-07] MEDS: PRENATAL VITAMIN W DHA CAPSULE PO SCH (10:19)
[2020-07-07] MEDS: FAMOTIDINE 20 MG TABLET PO SCH (10:19)
[2020-07-07] MEDS: SENNOSIDES/DOCUSATE 8.6-50 MG 1 EACH TABLET PO SCH (10:19)
[2020-07-07] MEDS: DOCUSATE SODIUM 100 MG CAPSULE PO SCH (10:19)
== END 2020-07-07 13:47 | disposition home or self-care (01) | DRG 806 ==
LOC: LC 19:30 → LR 21:32 → 2N 07-05 08:48
PROVIDERS: ADMIT Obstetrics & Gynecology; ATTEND Obstetrics & Gynecology
PROC: 10E0XZZ Delivery of Products of Conception, External Approach (ICD-10-PCS; principal; 2020-07-05)
PROC: 0KQM0ZZ Repair Perineum Muscle, Open Approach (ICD-10-PCS; 2020-07-05)
DX: O42.92 Full-term premature rupture of membranes, unspecified as to length of time between rupture and onset of labor (principal); O99.354 Diseases of the nervous system complicating childbirth; Z37.0 Single live birth; O99.344 Other mental disorders complicating childbirth; G43.909 Migraine, unspecified, not intractable, without status migrainosus; O70.1 Second degree perineal laceration during delivery; O99.334 Smoking (tobacco) complicating childbirth; F17.210 Nicotine dependence, cigarettes, uncomplicated; F31.9 Bipolar disorder, unspecified; Z91.410 Personal history of adult physical and sexual abuse; Z86.19 Personal history of other infectious and parasitic diseases; Z3A.38 38 weeks gestation of pregnancy; Z71.6 Tobacco abuse counseling
CPT/HCPCS: 1967; 36415; 80307; 81005; 84112; 85025; 85027; 86592; 86850; 86900; 86901; 87081; 87491; 87591; J0290; J2300; J2550; J2590; J2795; J3010; J3490; J7050